=== PATIENT | male | born 1950 | race Caucasian/White ===

== ENCOUNTER 2018-01-10 16:30 | Emergency (ER) | payer MEDICARE ==
--- NOTE | 2018-01-10 17:09 | ED ---
Fall HPI - General Chief Complaint: Fall Stated Complaint: Fall Time Seen by Provider: 01/10/18 16:53 Source: patient Mode of arrival: EMS - History of Present Illness Initial Comments: Schuyler is a 67-year-old male with past medical history of Parkinson's disease and frequent falls. Patient presents to the emergency department today for evaluation of right-sided hip and buttock pain after falling off and approximately 5 [place]. Patient states that [place] when he lost his balance falling backwards, landing on his right-sided buttocks. Patient did not hit his head, he did not lose consciousness. He states that he had immediate pain in his right hip and right pelvis, he did not attempt to stand. EMS was contacted and brought in the hospital for management. Patient was noted to have a hematoma on his superior side of his right buttock. Patient denies any additional complaints. He states that he has frequent falls and chronic pain especially in his left shoulder from previous falls. He has no other new pain today. He has normal sensation and full range of motion of his bilateral lower extremities without difficulty. - Related Data Home Medications Medication Instructions Recorded Confirmed Carbidopa/Levodopa [Sinemet 25-100 1 each PO QID 01/10/18 01/10/18 mg] Droxidopa [Northera] 200 mg PO TID 01/10/18 01/10/18 Modafinil [Provigil] 200 mg PO DAILY 01/10/18 01/10/18 Pramipexole [Mirapex] 1 mg PO TID 01/10/18 01/10/18 QUEtiapine [SEROquel] 25 mg PO HS 01/10/18 01/10/18 Allergies Allergy/AdvReac Type Severity Reaction Status Date / Time Sulfa (Sulfonamide Allergy Unknown Verified 01/10/18 16:44 Antibiotics) Review of Systems ROS Statement: Those systems with pertinent positive or pertinent negative responses have been documented in the HPI. ROS Other: All systems not noted in ROS Statement are negative. Constitutional: Denies: fever Eyes: Denies: vision change ENT: Denies: hearing loss Respiratory: Denies: cough, dyspnea Cardiovascular: Denies: chest pain, palpitations Endocrine: Denies: fatigue Gastrointestinal: Denies: abdominal pain, nausea, vomiting Skin: Reports: change in color (contusion to right buttock) Neurological: Reports: abnormal gait (due to parkinsons). Denies: headache, weakness Psychiatric: Reports: depression, auditory hallucinations (occur at night, associated with parkinsons) Past Medical History Past Medical History: Sleep Apnea/CPAP/BIPAP Additional Past Medical History / Comment(s): PARKINSONS Past Surgical History: Back Surgery, Orthopedic Surgery Additional Past Surgical History / Comment(s): LEFT KNEE, BACK SURGERY, EYELID SURGERY, HERNIA AND HYDROCELE SURGERY Past Psychological History: No Psychological Hx Reported Smoking Status: Never smoker Past Alcohol Use History: Occasional Past Drug Use History: None Reported General Exam Limitations: no limitations General appearance: alert, other (appears uncomfortable, laying in position with right hip up and ice pack on hip/buttock) Head exam: Present: normocephalic, other (abrasion to left forehead, consistent with history of previous fall) Eye exam: Present: normal appearance, PERRL, EOMI ENT exam: Present: normal exam Neck exam: Present: full ROM, other (no midline cervical spine tenderness). Absent: tenderness Respiratory exam: Absent: normal lung sounds bilaterally, respiratory distress Cardiovascular Exam: Present: regular rate, normal rhythm GI/Abdominal exam: Present: soft. Absent: distended Rectal exam: Present: deferred Extremities exam: Present: tenderness, normal capillary refill. Absent: pedal edema, joint swelling, calf tenderness Back exam: Present: normal inspection Neurological exam: Present: alert, oriented X3 Psychiatric exam: Present: normal affect, normal mood Skin exam: Present: warm, dry, abrasion (right superior buttock, gluteal cleft) Course Vital Signs 01/10/18 01/10/18 01/10/18 16:37 19:10 21:01 Temperature 97.9 F Pulse Rate 81 74 82 Respiratory 16 16 18 Rate Blood Pressure 120/68 140/80 107/56 O2 Sat by Pulse 96 93 L 98 Oximetry 01/10/18 21:47 Temperature 98.2 F Pulse Rate Respiratory Rate Blood Pressure O2 Sat by Pulse Oximetry - Reevaluation(s) Reevaluation #1: X-ray reveals superior and inferior pubic rami fractures, results were discussed with the patient and family. At this time the patient would like to be discharged home, however his is uncertain of what the plan is. She states the baby do not lived near here and they would like to be transferred to a hospital closer to home. They would like to contact family members before making this decision. 01/10/18 19:32 Reevaluation #2: Return to the patient's room, patient is urinating in a urinal. They have not made a decision on where they would like to be transferred or discharged home. 01/10/18 19:53 Medical Decision Making - Medical Decision Making Patient was seen and evaluated, history was obtained from the patient and his at bedside, patient had a fall from approximately 5 feet and is experiencing pain in the right buttock and right hip. Patient is noted to have abrasions and a contusion at the site. Imaging was ordered. Patient denies being on any anticoagulant or antiplatelet medication Cervical spine with no midline cervical spine tenderness, no focal neurologic deficits, no evidence of intoxication, full range of motion without pain, at this time I cleared the patient's cervical spine clinically. with minimal pain, declines pain medication at this time Xray of the pelvis with no definitive injury, x-ray of the hip was ordered, which identified a right superior and inferior pubic rami fracture X-ray results were discussed with the patient and his at bedside. I offered them admission to our hospital for further evaluation, however they live in [place] and would prefer to be transferred to [facility] where they have establish orthopedic care. Patient care was discussed with Dr. Gonzalez at [facility] who accepts the transfer for a 67-year-old woman with superior and inferior pubic rami fracture Updated the patient and his on plan for transfer to [facility], patient resting comfortably, states that he would like to attempt to stand to urinate as he has not comfortable urinating with the urinal while laying down. At this time the states that they have discussed the patient's care with his children, his daughter who is a nurse at [facility], they state that they forgot to mention that when he fell he might have heard a snap in his neck. Patient states he has no pain in his neck now, continues to have no focal neurologic deficits, no midline cervical spine tenderness. However I will plan to image the patient's head and C-spine. 9:06PM CT cervical spine without acute injury - patient ok to transfer to [facility] - Lab Data Result diagrams: 01/10/18 20:32 01/10/18 20:32 Lab Results 01/10/18 01/10/18 01/10/18 Range/Units 20:32 20:32 20:32 WBC 8.2 (3.8-10.6) k/uL RBC 4.22 L (4.30-5.90) m/uL Hgb 13.3 (13.0-17.5) gm/dL Hct 40.8 (39.0-53.0) % MCV 96.5 (80.0-100.0) fL MCH 31.4 (25.0-35.0) pg MCHC 32.6 (31.0-37.0) g/dL RDW 13.7 (11.5-15.5) % Plt Count 166 (150-450) k/uL Neutrophils % 84 % Lymphocytes % 8 % Monocytes % 6 % Eosinophils % 1 % Basophils % 0 % Neutrophils # 6.9 (1.3-7.7) k/uL Lymphocytes # 0.7 L (1.0-4.8) k/uL Monocytes # 0.5 (0-1.0) k/uL Eosinophils # 0.1 (0-0.7) k/uL Basophils # 0.0 (0-0.2) k/uL PT 11.1 (9.0-12.0) sec INR 1.1 (<1.2) APTT 23.3 (22.0-30.0) sec Sodium 143 (137-145) mmol/L Potassium 4.1 (3.5-5.1) mmol/L Chloride 107 (98-107) mmol/L Carbon Dioxide 25 (22-30) mmol/L Anion Gap 11 mmol/L BUN 23 H (9-20) mg/dL Creatinine 0.79 (0.66-1.25) mg/dL Est GFR (CKD-EPI)AfAm >90 (>60 ml/min/1.73 sqM) Est GFR (CKD-EPI)NonAf >90 (>60 ml/min/1.73 sqM) Glucose 98 (74-99) mg/dL Calcium 9.2 (8.4-10.2) mg/dL Disposition Clinical Impression: Pubic ramus fracture Disposition: OTHER INSTITUTION NOT DEFINED Condition: Good Is patient prescribed a controlled substance at d/c from ED?: No Referrals: Sebastian Mckay MD [Primary Care Provider] - 1-2 days Time of Disposition: 20:01 - Out of Hospital Transfer - Req. Specs Out of Hospital Transfer - Requested Specifics: Other Emergency Center ( [facility])
--- NOTE | 2018-01-10 17:51 | XR ---
PROCEDURE: XR pelvis AP view DATE AND TIME: 01/10/2018 5:22 PM REFERRING PHYSICIAN: Karoline Rosenbaum DO CLINICAL INDICATION: PHH, Pain after fall TECHNIQUE: Department protocol. COMPARISON: None FINDINGS: There is no fracture or malalignment. The soft tissues are unremarkable. IMPRESSION: NO ACUTE PROCESS, AP PELVIS ONE VIEW.
--- NOTE | 2018-01-10 19:31 | XR ---
PROCEDURE: XR Hip Complete RT 2 views DATE AND TIME: 01/10/2018 6:51 PM REFERRING PHYSICIAN: Karoline Rosenbaum DO CLINICAL INDICATION: PHH, Pain TECHNIQUE: Department protocol. COMPARISON: None FINDINGS: There is a nondisplaced fracture involving the superior pubic ramus. There is also the suggestion of a lucency of the right inferior pubic ramus;, suspect nondisplaced fr acture at this location. No other fracture or malalignment. Mild-moderate osteoarthritis changes are appreciated. The soft tissues are remarkable rounded soft tissue swelling over the right hip. IMPRESSION: NONDISPLACED FRACTURES INVOLVING THE RIGHT SUPERIOR AND INFERIOR RIGHT PUBIC RAMI.
[2018-01-10 20:48] LABS: Basophils % (A) 0 %; Eosinophils # (A) 0.1 k/uL (0-0.7); Eosinophils % (A) 1 %; HCT 40.8 % (39.0-53.0); HGB 13.3 gm/dL (13.0-17.5); Lymphocytes # (A) 0.7 k/uL (1.0-4.8); Lymphocytes % (A) 8 %; MCH 31.4 pg (25.0-35.0); MCHC 32.6 g/dL (31.0-37.0); MCV 96.5 fL (80.0-100.0); Mean Platelet Volume 6.6; Monocytes # (A) 0.5 k/uL (0-1.0); Monocytes % (A) 6 %; Neutrophils # (A) 6.9 k/uL (1.3-7.7); Neutrophils % (A) 84 %; Platelet Count 166 k/uL (150-450); RBC 4.22 m/uL (4.30-5.90); RDW 13.7 % (11.5-15.5); WBC 8.2 k/uL (3.8-10.6)
[2018-01-10 20:53] LABS: INR 1.1 (<1.2); Partial Thromboplastin Time 23.3 sec (22.0-30.0); Prothrombin Time 11.1 sec (9.0-12.0)
[2018-01-10 20:58] LABS: Anion Gap 11 mmol/L; Blood Urea Nitrogen 23 mg/dL (9-20); Calcium 9.2 mg/dL (8.4-10.2); Carbon Dioxide 25 mmol/L (22-30); Chloride 107 mmol/L (98-107); Glucose 98 mg/dL (74-99); Potassium 4.1 mmol/L (3.5-5.1); Sodium 143 mmol/L (137-145)
[2018-01-10 21:03] VITALS: BP 107/56; PULSE 82; RESP 18
--- NOTE | 2018-01-10 21:04 | CT ---
EXAMINATION TYPE: CT brain jack robbins DATE OF EXAM: 01/10/2018 COMPARISON: NONE HISTORY: Fall injury. Hx of parkinsons disease TECHNIQUE: CT scan of the head and cervical spine are performed without contrast. CT DLP: 1815.1 mGycm. Automated exposure control for dose reduction was used. FINDINGS: There is mild soft tissue swelling anterior to the left frontal bone, but no underlying sku ll fracture. The orbits are intact. There is no skull fracture or acute intracranial hemorrhage. The re is no mass effect, or midline shift. The ventricles and sulci are within normal limits in size. Th e visualized sinuses and middle ear cavities and mastoid sinus air cells are clear. Cervical spine is visualized in its entirety from C1 through upper thoracic levels and demonstrates s atisfactory alignment without evidence of acute fracture or dislocation. C4-C7 anterior fusion noted, with intact orthopedic hardware. Scattered spondylosis changes are appreciated. Prevertebral soft ti ssue appears within normal limits. The C1-C2 articulation is unremarkable. IMPRESSION: 1. There is no acute fracture or dislocation evident in the cervical spine. 2. No acute intracranial hemorrhage, mass effect, or midline shift is seen.
[2018-01-10 21:48] VITALS: TEMP 98.2
== END 2018-01-10 21:48 | disposition other institution (70) ==
LOC: EC 16:30
DX: S32.591A Other specified fracture of right pubis, initial encounter for closed fracture (principal); S00.81XD Abrasion of other part of head, subsequent encounter; G20 Parkinson's disease; R29.6 Repeated falls; M25.512 Pain in left shoulder; G89.29 Other chronic pain; G47.30 Sleep apnea, unspecified; Z99.89 Dependence on other enabling machines and devices; Z79.899 Other long term (current) drug therapy; Z88.2 Allergy status to sulfonamides; Z53.29 Procedure and treatment not carried out because of patient's decision for other reasons; W17.89XA Other fall from one level to another, initial encounter; Y93.01 Activity, walking, marching and hiking; Y92.838 Other recreation area as the place of occurrence of the external cause
CPT/HCPCS: 36415; 70450; 72125; 72170; 73502; 80048; 85025; 85610; 85730; 99285